=== PATIENT | female | born 1980 | race Caucasian/White ===

== ENCOUNTER 2016-11-26 11:14 | Emergency (ER) | payer MEDICAID, OTHER ==
[~2016-11-26] VITALS: Wt 64.5 kg
[2016-11-26] MEDS ORDERED: KETOROLAC 30 MG INJ IM STA (11:51)
--- NOTE | 2016-11-26 12:01 | ERD ---
ER Documentation Chief Complaint Date/Time DATE: 11/26/16 TIME: 11:30 Chief Complaint LOW BACK PAIN FROM A FALL 5 DAYS AGO . MORE PAIN NOW HPI 36 y/o female presents to ED for low back pain from a fall last Wednesday. She was playing tug of war with her sisters when she slipped, fell landed on her coccyx area. Pain was described as sharp that radiates to her right posterior thigh with rate of 10/10 on movement. She also stated that she had a loss of bladder control Wednesday (a day after her fall and this only happened once). States that she was able to walk after the fall but with pain. Came here because her pain is getting worse. Ambulatory but has mild difficulty due to pain. Denies headache, loss of consciousness, dizziness, blurry vision, changes in vision, photophobia, facial pain, ear pain, throat pain, difficulty swallowing, neck pain, shoulder pain, chest pain, cough, hemoptysis, abdominal pain, loss of appetite, nausea, vomiting, hematochezia, diarrhea, constipation, urinary symptoms, , the possibility of being , bowel incontinences, extremity weakness, extremity tenderness, numbness or tingling sensation, recent travel, recent exposure to illness, recent antibiotic use in the last 3 months, fever, chills. Allergy: NKA PMH: Denies Family medical history: Denies AO LMP:11/12/2016 Medications: Denies Surgery: Appendectomy Primary Social History: Denies smoking, use of alcohol, use of illegal drugs. ROS All systems reviewed and are negative except as per history of present illness. PMhx/Soc Denies Medical and Surgical Hx: pt denies Medical Hx, pt denies Surgical Hx Physical Exam Vitals Vital Signs Date Time Temp Pulse Resp B/P Pulse Ox O2 Delivery O2 Flow Rate FiO2 11/26/16 11:18 98.8 71 20 142/81 98 Physical Exam CONSTITUTIONAL: Well-appearing; well-nourished; in no apparent distress. HEAD: Normocephalic; atraumatic. EYES: Conjunctiva clear, sclera non-icteric, EOM intact. PERRL Ears: Hearing intact. EACs clear, TMs non-bulging, non-inflamed, translucent & mobile, ossicles normal appearance, No obstructions, no erythema, no discharges Nose: No obstructions. No polyps. No external lesions. Mucosa non-inflamed. No external lesions, septum and turbinates normal. No rhinorrhea. No discharges. Frontal sinus is non-tender to palpation. Maxillary sinus is non-tender to palpation. MOUTH: Moist mucous membranes, no lesion, no obstructions, no vesicles, no thrush, patent airway Throat: Uvula in midline. Right tonsil is +1 with no erythema, no exudate. Left tonsil is +1 with no erythema, no exudate. Tolerating secretions well. Good gag reflex. Patent airway. Neck: Supple, without lesions, bruits, or adenopathy. No mass. Thyroid non- enlarged and non-tender to palpation. CHEST: Symmetrical chest. Respirations even and not labored. No retractions noted. CARDIOVASCULAR: Normal S1, S2. RRR. No murmurs, gallops. RESPIRATORY: Normal chest excursion with respiration; breath sounds clear and equal bilaterally; no wheezes, rhonchi, or rales. Breathing even and unlabored. Speaking in clear, full, and complete sentences w/ ease. ABDOMEN: Normal bowel sounds normal. Soft, round, non-distended, non-guarding, no tenderness, no rebound, no organomegaly, no masses, no pulsating abdominal mass. No hernia. No peritoneal signs. : No CVA tenderness. BACK: Symmetrical shoulder. Spine is midline without deformity, tenderness. No evidence of trauma or deformity. PELVIS: Stable pelvis. No evidence of trauma or deformity. MUSCULOSKELETAL: Normal gait and station. No misalignment, asymmetry, crepitation, defects, masses, effusions, decreased range of motion, instability , atrophy or abnormal strength or tone in the head, neck, spine, ribs, pelvis or extremities. No calf tenderness. Positive right straight leg test. Tenderness to L4 and L5 on palpation. NEUROVASCULAR: Distal pulses are present. Pedal pulse are present, equal, and normal. Capillary refills are < 2 seconds. NEUROLOGIC: Alert and oriented x4. Speaks full and clear sentences. Cranial Nerves II-XII normal. Sensation to pain, touch, and proprioception normal. Grossly unremarkable. No neurologic deficits. Romberg test is negative. PSYCHOLOGICAL: The patients mood and manner are appropriate. No hallucinations , delusions. Not SI. Not HI. Has the capacity to decide for self SKIN: Normal for age and ethnicity; warm; dry; good turgor; no apparent lesions or exudates. No rashes, hives, discoloration. Intact. Results 24 hrs Laboratory Tests Test 11/26/16 12:05 Bedside Urine Blood Negative Bedside Urine Glucose (UA) Negative Bedside Urine Ketones (LAB) Negative Bedside Urine Leukocyte Esterase (L Negative Bedside Urine Nitrite (LAB) Negative Bedside Urine Protein (LAB) Negative Bedside Urine pH (LAB) 7.0 Current Medications Medications (Trade) Dose Ordered Sig/Annemarie Route PRN Reason Start Time Stop Time Status Last Admin Dose Admin Ketorolac Tromethamine (Toradol) 30 mg ONCE STAT IM 11/26/16 11:51 11/26/16 11:52 DC 11/26/16 12:06 Procedures/MDM Examination: MUSCULOSKELETAL: Normal gait and station. No misalignment, asymmetry, crepitation, defects, masses, effusions, decreased range of motion, instability , atrophy or abnormal strength or tone in the head, neck, spine, ribs, pelvis or extremities. No calf tenderness. Positive right straight leg test. Tenderness to L4 and L5 on palpation. No neurological deficits. No neurovascular deficits. Disease process, medical treatment was explained to the patient and family member. They verbalized understanding and agreed with the diagnostic tests, medical treatment, and follow-up care. Radiology: CT lumbar spine IMPRESSION: 1. No acute lumbar spine fracture or subluxation. 2. At L4-L5 and L5-S1, 2-3 mm diffuse disk bulge and mild bilateral foraminal narrowing. 3. Otherwise no significant spinal canal or foraminal stenosis at any other lumbar levels. 4. A 3 mm vascular calcification versus a nonobstructing stone in the superior pole of the left kidney. POC urine : Negative Urine dip: Unremarkable Treatment: Toradol Re-evaluation: Relieve the pain. No neurovascular deficits. No neurological deficits. Consultation: None Differential diagnosis: Fracture versus contusion versus sprain versus strain versus low back pain versus low back strain versus sciatic pain Case and medical management was discussed with supervising doctor, Dr. Trav Funes. He agreed with present treatment and after care. Medical decision makin36 y/o female presents to ED for low back pain from a fall last Wednesday. She was playing tug of war with her sisters when she slipped , fell landed on her coccyx area. Pain was described as sharp that radiates to her right posterior thigh with rate of 10/10 on movement. She also stated that she had a loss of bladder control Wednesday (a day after her fall and this only happened once). States that she was able to walk after the fall but with pain. Came here because her pain is getting worse. Ambulatory but has mild difficulty due to pain. Patient's complaint, history, physical findings, diagnostic test results are consistent with my final diagnosis of back pain, lumbar strain. Medications prescribed are the following: Motrin, tramadol Patient and family member are made aware of the side effects and adverse reactions of the medications prescribed. Instructed on when to seek emergent and medical attention in case allergic/anaphylactic reactions or severe side effects and or adverse reactions to medications. Patient and family member verbalized understanding. Patient instructed Instructed to follow-up with his PCP in 24-48 hours. Instructed to Call 911 for chest pain, shortness of breath. Advised to come back here in ED as soon as possible for severity of symptoms which includes but not limited to: any new symptoms; shortness of breath/difficulty of breathing; cardiovascular changes; severe gastrointestinal symptoms; signs and symptoms of bleeding and or infection; signs of compartment syndrome/neurovascular changes; neurological changes/deficits. Patient and family member verbalized understanding. Upon discharge, patient is alert and oriented x 4, speaks full and clear sentences, denies pain, has no neurological deficits, has no neurovascular deficits, difficulty of breathing. Breathing even and unlabored. Lung sounds are clear to auscultation. Not in distress. Appears comfortable. Ambulatory with steady gait. Appears satisfied with care provided here in ED. Departure Diagnosis: Primary Impression: Back pain Additional Impression: Lumbar strain Condition: Good Additional Instructions: Follow-up with primary care physician in 24-48 hours. KENNETH ERWIN Nov 26, 2016 12:01
[2016-11-26 12:04] LABS: URINE BLOOD (Dip) POC Negative (NEGATIVE)
--- NOTE | 2016-11-26 12:47 | RADRPT ---
PROCEDURE: CT Lumbar Spine. CLINICAL INDICATION: Injury. Low back pain TECHNIQUE: The study was performed on a multidetector CT scanner. Volumetric data was obtained th rough the lumbar spine and reformatted in the axial plane. Sagittal and coronal reformations were cr eated from the raw axial data. One or more the following does reduction techniques were utilized: Au tomated exposure control, adjustment of the mA/ or kV according to patient's size, or use of iterati ve reconstruction technique. The images were reviewed on a PACS workstation. CTDI 9.6 mGy. DLP 244.3 mGy-cm. COMPARISON: No prior studies are available for comparison. FINDINGS: There is maintenance normal vertebral body height and alignment with preservation of a normal lumbar lordosis. The paravertebral soft tissues are unremarkable. No lytic or blastic lesions are identif ied. T12-L1: The disk is normal in height. No significant disk bulge or protrusion is seen. The central canal and neural foramina appear adequately patent. L1-L2: The disk is normal in height. No significant disk bulge or protrusion is seen. The central c anal and neural foramina appear adequately patent. L2-L3: The disk is normal in height. No significant disk bulge or protrusion is seen. The central c anal and neural foramina appear adequately patent. L3-L4: The disk is normal in height. No significant disk bulge or protrusion is seen. The central c anal and neural foramina appear adequately patent. L4-L5: The disk is normal in height. There is 2-3 mm diffuse disk bulge. There is mild bilateral fo raminal narrowing. The central canal appears adequately patent. L5-S1:The disk is normal in height. There is 2-3 mm diffuse disk bulge. There is mild bilateral for aminal narrowing. The central canal appears adequately patent. There is 3 mm calcified density in the superior pole of the left kidney which may represent vascular calcification versus a nonobstructing stone. IMPRESSION: 1. No acute lumbar spine fracture or subluxation. 2. At L4-L5 and L5-S1, 2-3 mm diffuse disk bulge and mild bilateral foraminal narrowing. 3. Otherwise no significant spinal canal or foraminal stenosis at any other lumbar levels. 4. A 3 mm vascular calcification versus a nonobstructing stone in the superior pole of the left kid stanley. RPTAT: JJ .Arash Landry MD, MD Date Time Electronically viewed and signed by .Arash Landry MD, MD on 11/26/2016 12:46 .N/
[2016-11-26] MEDS ORDERED: TRAM50TA2 PO (13:06)
[2016-11-26] MEDS ORDERED: IBUP-1542 PO (13:07)
[2016-11-26 13:15] VITALS: BP 134/79; PULSE 68; RESP 18; TEMP 98.2
== END 2016-11-26 13:15 | disposition home or self-care (01) ==
LOC: FTE 11:14
DX: S39.012A Strain of muscle, fascia and tendon of lower back, initial encounter (principal); W01.0XXA Fall on same level from slipping, tripping and stumbling without subsequent striking against object, initial encounter; Y92.9 Unspecified place or not applicable
CPT/HCPCS: 72131; 81003; J1885; 96372

== ENCOUNTER 2017-05-12 17:05 | Emergency (ER) | payer OTHER ==
[~2017-05-12] VITALS: Ht 162.6 cm; Wt 66.0 kg
[~2017-05-12 17:05] MED LIST: IBUP-1542 PO; TRAM50TA2 PO
[2017-05-12 17:08] VITALS: Ht 162.6 cm; Wt 66.0 kg
--- NOTE | 2017-05-12 17:39 | ERA ---
ER Documentation Chief Complaint Date/Time DATE: 05/12/17 TIME: 17:39 Chief Complaint Rash HPI The patient is a 36-year-old female, presenting to the ER because of left wrist rash for 1 day, right leg rash for 1 day. She noticed some blister today. She denies fever, chills, neck pain, chest pain, dyspnea, abdominal pain, vomiting, diarrhea, constipation. She denies using any new detergent, new soap, new lotion. She does not smoke or drink Past medical/surgical history: None ROS All systems reviewed and are negative except as per history of present illness. Medications Home Meds Active Scripts Triamcinolone Acetonide* (Kenalog*) 0.1%-15GM Cr, 1 APPLIC TOP BID for 7 Days, # 1 TUB Prov:JAYY VIGIL MD 05/12/17 Acyclovir* (Acyclovir*) 800 Mg Tablet, 800 MG PO 5 TIMES DAILY for 7 Days, TAB Prov:JAYY VIGIL MD 05/12/17 Ibuprofen* (Motrin*) 600 Mg Tab, 600 MG PO Q6H Y for PAIN AND OR ELEVATED TEMP, #30 TAB Prov:KENNETH ERWIN F 11/26/16 Tramadol HCl (Tramadol HCl) 50 Mg Tablet, 50 MG PO Q6 Y for PAIN, #20 TAB Prov:KENNETH ERWIN F 11/26/16 Allergies Allergies: Coded Allergies: No Known Allergy (Unverified , 05/12/17) Physical Exam Vitals Vital Signs Date Time Temp Pulse Resp B/P Pulse Ox O2 Delivery O2 Flow Rate FiO2 05/12/17 17:08 98.1 71 16 128/70 98 Physical Exam Const: No acute distress. Head: Atraumatic. Eyes: Normal Conjunctiva. ENT: Normal External Ears, Nose and Mouth. Neck: Full range of motion. No meningismus. Resp: Clear to auscultation bilaterally. Cardio: Regular rate and rhythm. Abd: Soft, non distended, normal bowel sounds, non tender. Skin: Erythematous macular rash at the left wrist and right medial thigh with vesicles Back: No midline or flank tenderness. Ext: No cyanosis, or edema. Neur: Awake and alert. No focal deficit Psych: Normal Mood and Affect. Procedures/MDM MEDICAL MAKING DECISION: The patient is a 36-year-old female, presenting with acute herpes zoster. She is stable for outpatient follow-up The differential diagnoses considered include but are not limited to cellulitis , allergic reaction, contact dermatitis, allergic dermatitis Departure Diagnosis: Primary Impression: Shingles Condition: Good Comments She was treated with acyclovir and Kenalog cream I discussed the findings with the patient. I advised the patient to follow-up with the primary physician in about 1-2 days, sooner if needed and return if any concern. JAYY VIGIL MD May 12, 2017 17:39
[2017-05-12] MEDS ORDERED: ACYC800T PO (17:59)
[2017-05-12] MEDS ORDERED: TRIA15CR55 TOP (18:00)
== END 2017-05-12 19:03 | disposition home or self-care (01) ==
LOC: FTE 17:05
DX: B02.9 Zoster without complications (principal)
CPT/HCPCS: 99284

== ENCOUNTER 2017-05-14 00:18 | Emergency (ER) | payer OTHER ==
[~2017-05-14] VITALS: Ht 162.6 cm; Wt 66.5 kg
[~2017-05-14 00:18] MED LIST changes: +ACYC800T PO; +TRIA15CR55 TOP
[2017-05-14 00:22] VITALS: Ht 162.6 cm; Wt 66.5 kg
[2017-05-14 01:46] LABS: URINE BLOOD (Dip) POC Negative (NEGATIVE)
--- NOTE | 2017-05-14 01:49 | ERA ---
ER Documentation Chief Complaint Date/Time DATE: 05/14/17 TIME: 01:49 Chief Complaint Right upper quadrant abdominal pain HPI The patient is a 36-year-old female, presenting to the ER because of right upper quadrant and right lower chest pain radiating to the right upper back when she woke up around 12 AM today. She feels bloated abdomen, had a loose bowel movement but did not get better. She is being treated for herpes zoster with acyclovir for the last 2 days. She denies fever, chills, dyspnea, dysuria , polyuria. She does not smoke nor drink Past medical history: None past Surgical history: Appendectomy ROS All systems reviewed and are negative except as per history of present illness. Medications Home Meds Active Scripts Hydrocodone/Acetaminophen ([place] 5-325 Tablet) 1 Each Tablet, 1 TAB PO Q6H Y for PAIN, #7 TAB Prov:ORTEGA VIGIL MD 05/14/17 Ibuprofen* (Motrin*) 600 Mg Tab, 600 MG PO Q6H Y for PAIN AND OR ELEVATED TEMP, #30 TAB Prov:ORTEGA VIGIL MD 05/14/17 Triamcinolone Acetonide* (Kenalog*) 0.1%-15GM Cr, 1 APPLIC TOP BID for 7 Days, # 1 TUB Prov:ORTEGA VIGIL MD 05/12/17 Acyclovir* (Acyclovir*) 800 Mg Tablet, 800 MG PO 5 TIMES DAILY for 7 Days, TAB Prov:ORTEGA VIGIL MD 05/12/17 Reported Medications Multivitamin (MULTI-VITAMIN DAILY) 1 Each Tablet, 1 TAB PO DAILY, TAB 05/14/17 Discontinued Scripts Ibuprofen* (Motrin*) 600 Mg Tab, 600 MG PO Q6H Y for PAIN AND OR ELEVATED TEMP, #30 TAB Prov:KENNETH ERWIN F 11/26/16 Tramadol HCl (Tramadol HCl) 50 Mg Tablet, 50 MG PO Q6 Y for PAIN, #20 TAB Prov:KENNETH ERWIN F 11/26/16 Allergies Allergies: Coded Allergies: No Known Allergy (Unverified , 05/12/17) PMhx/Soc Hx Alcohol Use: No Hx Substance Use: No Hx Tobacco Use: No Physical Exam Vitals Vital Signs Date Time Temp Pulse Resp B/P Pulse Ox O2 Delivery O2 Flow Rate FiO2 05/14/17 00:22 96.5 75 20 123/86 99 Physical Exam Const: No acute distress. Head: Atraumatic. Eyes: Normal Conjunctiva. ENT: Normal External Ears, Nose and Mouth. Neck: Full range of motion. No meningismus. Resp: Clear to auscultation bilaterally. Cardio: Regular rate and rhythm. Abd: Soft, non distended, normal bowel sounds, minimal right upper quadrant tenderness Skin: No petechiae or rashes. No skin rash along right upper chest and right upper back. Macular, erythematous rash at the left wrist and right inner thigh Back: No midline or flank tenderness. Ext: No cyanosis, or edema. Neur: Awake and alert. No focal deficit Psych: Normal Mood and Affect. Result Diagram: 05/14/17 0135 05/14/17 0135 Results 24 hrs Laboratory Tests Test 05/14/17 01:35 05/14/17 01:50 White Blood Count 11.710^3/ul Red Blood Count 5.0910^6/ul Hemoglobin 15.7g/dl Hematocrit 45.3% Mean Corpuscular Volume 89.0fl Mean Corpuscular Hemoglobin 30.8pg Mean Corpuscular Hemoglobin Concent 34.7g/dl Red Cell Distribution Width 12.5% Platelet Count 89227^3/UL Mean Platelet Volume 12.2fl Neutrophils % 88.0% Lymphocytes % 6.7% Monocytes % 4.1% Eosinophils % 0.7% Basophils % 0.2% Nucleated Red Blood Cells % 0.0/100WBC Neutrophils # 10.310^3/ul Lymphocytes # 0.810^3/ul Monocytes # 0.510^3/ul Eosinophils # 0.110^3/ul Basophils # 0.010^3/ul Nucleated Red Blood Cells # 0.010^3/ul Sodium Level 134mmol/L Potassium Level 3.9mmol/L Chloride Level 102mmol/L Carbon Dioxide Level 24mmol/L Anion Gap 12 Blood Urea Nitrogen 19mg/dl Creatinine 0.77mg/dl Glucose Level 91mg/dl Calcium Level 9.7mg/dl Total Bilirubin 0.4mg/dl Direct Bilirubin 0.00mg/dl Indirect Bilirubin 0.4mg/dl Aspartate Amino Transf (AST/SGOT) 32IU/L Alanine Aminotransferase (ALT/SGPT) 35IU/L Alkaline Phosphatase 92IU/L Total Protein 8.8g/dl Albumin 5.4g/dl Globulin 3.40g/dl Albumin/Globulin Ratio 1.58 Lipase 133U/L Bedside Urine pH (LAB) 7.0 Bedside Urine Protein (LAB) Negative Bedside Urine Glucose (UA) Negative Bedside Urine Ketones (LAB) Negative Bedside Urine Blood Negative Bedside Urine Nitrite (LAB) Negative Bedside Urine Leukocyte Esterase (L Negative Current Medications Medications (Trade) Dose Ordered Sig/Annemarie Route PRN Reason Start Time Stop Time Status Last Admin Dose Admin Sodium Chloride (NS) 1,000 ml @ 1,000 mls/hr Q1H STAT IV 05/14/17 01:59 05/14/17 02:58 DC 05/14/17 02:04 Morphine Sulfate (morphine) 4 mg ONCE STAT IV 05/14/17 01:59 05/14/17 02:01 DC 05/14/17 02:04 Ondansetron HCl (Zofran Inj) 4 mg ONCE STAT IV 05/14/17 01:59 05/14/17 02:01 DC 05/14/17 02:04 Procedures/[place] [id number] Radiology Main Line: [phone] DIAGNOSTIC IMAGING REPORT Patient: VICENTE WITT : 1980 Age: 36 Sex: F [id number] DOS: 05/14/17 0159 Ordering MD: ORTEGA VIGIL MD Location: E/R Room/Bed: PROCEDURE: US Abdomen (right upper quadrant). CLINICAL INDICATION: Pain. TECHNIQUE: Multiple real-time longitudinal and transverse images of the right upper quadrant of the abdomen were acquired utilizing a curved array transducer. Images were reviewed on a high-resolution PACS workstation. COMPARISON: None FINDINGS: The liver is normal in size and echogencity. There is no focal intrahepatic mass.. The gallbladder is normal. There is no pericholecystic fluid or gallbladder wall thickening or gallstones. No intra or extrahepatic biliary dilatation is seen. The common bile duct measures 2.2 mm in maximal dimension. The visualized portions of the pancreas are unremarkable with obscuration of the tail of the pancreas. No free fluid is identified. Visualized abdominal aorta and IVC are unremarkable. The right kidney measures 11.3 cm in length. There is normal echogenicity within the right kidney. There is no perinephric fluid collection. No hydronephrosis, mass, or calculus is seen. IMPRESSION: 1. Negative examination. RPTAT: HMVK .Ortega De La Vega MD, MD Date Time Electronically viewed and signed by .Ortega De La Vega MD, MD on 05/14/2017 02:59 .K/ CC: ORTEGA VIGIL MD MEDICAL MAKING DECISION: The patient is a 35-year-old female, presenting with acute right chest wall pain, most likely neuropathic pain from shingles. She was treated with 1 L normal saline for clinical dehydration, morphine formula IV for pain, Zofran 4 mg IV for nausea with good response The differential diagnoses considered include but are not limited to pneumonia, pneumothorax, cholecystitis, renal colic, pyelonephritis Departure Diagnosis: Primary Impression: Chest wall pain Additional Impression: Shingles Condition: Good Comments She was discharged with Motrin and [place] I discussed the findings with the patient. I advised the patient to follow-up with the primary physician in about 1-2 days, sooner if needed and return if any concern. The patient's blood pressure was elevated (>120/80) but appears stable without evidence of hypertension emergency or urgency. The patient was counseled about the risks of hypertension and urged to pursue outpatient monitoring and therapy within a week with their primary care physician. ORTEGA VIGIL MD May 14, 2017 01:49
[2017-05-14] MEDS ORDERED: ONDANSETRON 4 MG INJ IV STA (01:59)
[2017-05-14] MEDS ORDERED: morphine 4 MG/ML VIAL IV STA (01:59)
[2017-05-14] MEDS ORDERED: SOD CHLORIDE 0.9% 1,000 ML IV STA (01:59)
[2017-05-14 02:19] LABS: ADD SCAN DIFF NO; BASOPHILS % 0.2 % (0.0-2.0); EOSINOPHILS # 0.1 10^3/ul (0.0-0.5); EOSINOPHILS % 0.7 % (0.0-7.0); HEMATOCRIT 45.3 % (37.0-47.0); HEMOGLOBIN 15.7 g/dl (12.0-16.0); LYMPHOCYTES # 0.8 10^3/ul (0.8-2.9); LYMPHOCYTES % 6.7 % (15.0-51.0); MEAN CORPUSCULAR HEMOGLOBIN 30.8 pg (29.0-33.0); MEAN CORPUSCULAR HGB CONC 34.7 g/dl (32.0-37.0); MEAN PLATELET VOLUME 12.2 fl (7.4-10.4); MONOCYTE # 0.5 10^3/ul (0.3-0.9); MONOCYTES % 4.1 % (0.0-11.0); NEUTROPHIL # 10.3 10^3/ul (1.6-7.5); PLATELET COUNT 159 10^3/UL (140-415); RED BLOOD COUNT 5.09 10^6/ul (4.20-5.40); RED CELL DISTRIBUTION WIDTH 12.5 % (11.5-14.5); WHITE BLOOD COUNT 11.7 10^3/ul (4.8-10.8)
[2017-05-14 02:34] LABS: ALBUMIN 5.4 g/dl (3.3-4.9); ALBUMIN/GLOBULIN RATIO 1.58; BILIRUBIN,INDIRECT 0.4 mg/dl (0-1.1); BILIRUBIN,TOTAL 0.4 mg/dl (0.2-1.3); CALCIUM 9.7 mg/dl (8.4-10.2); CREATININE 0.77 mg/dl (0.44-1.00); POTASSIUM 3.9 mmol/L (3.5-5.1); TOTAL PROTEIN 8.8 g/dl (6.1-8.1)
[2017-05-14] MEDS ORDERED: MULT-762 PO (02:39)
--- NOTE | 2017-05-14 02:59 | RADRPT ---
PROCEDURE: US Abdomen (right upper quadrant). CLINICAL INDICATION: Pain. TECHNIQUE: Multiple real-time longitudinal and transverse images of the right upper quadrant of th e abdomen were acquired utilizing a curved array transducer. Images were reviewed on a high-resoluti on PACS workstation. COMPARISON: None FINDINGS: The liver is normal in size and echogencity. There is no focal intrahepatic mass.. The gallbladder is normal. There is no pericholecystic fluid or gallbladder wall thickening or gallstones. No intr a or extrahepatic biliary dilatation is seen. The common bile duct measures 2.2 mm in maximal dimen george. The visualized portions of the pancreas are unremarkable with obscuration of the tail of the pancreas. No free fluid is identified. Visualized abdominal aorta and IVC are unremarkable. The right kidney measures 11.3 cm in length. There is normal echogenicity within the right kidney. There is no perinephric fluid collection. No hydronephrosis, mass, or calculus is seen. IMPRESSION: 1. Negative examination. RPTAT: HMVK .Ortega De La Vega MD, MD Date Time Electronically viewed and signed by .Ortega De La Vega MD, on 05/14/2017 02:59 .K/
[2017-05-14] MEDS ORDERED: IBUP-1542 PO (04:14)
[2017-05-14] MEDS ORDERED: HYDR-906 PO (04:15)
== END 2017-05-14 04:35 | disposition home or self-care (01) ==
LOC: E/R 00:18
DX: R07.89 Other chest pain (principal); B02.9 Zoster without complications
CPT/HCPCS: 76705; 80053; 81003; 83690; 85025; J2270; J2405; J7030; 36415; 96374; 96375